=== PATIENT | male | born 1970 | race Caucasian/White ===

== ENCOUNTER 2022-02-08 09:31 | Observation (INO) ==
[2022-02-08] MEDS ORDERED: SODIUM CHLORIDE 1,000 ML IV STA (09:59)
[2022-02-08] MEDS ORDERED: THIAMINE 100 MG in SODIUM CHLORIDE 50 ML IV ONE ×2 (10:01→12:37)
[2022-02-08] MEDS ORDERED: THIAMINE ONE (10:07)
[2022-02-08 10:13] LABS: BASOPHILS # (AUTO) 0.1 K/uL (0-0.2); BASOPHILS % (AUTO) 0.7 % (0.0-3.0); EOSINOPHILS # (AUTO) 0.2 K/ul (0.0-0.7); EOSINOPHILS % (AUTO) 1.6 % (0.0-7.0); HEMATOCRIT 44.5 % (42.0-52.0); HEMOGLOBIN 15.1 g/dl (14.0-18.0); IMMATURE GRANULOCYTE % (AUTO) 0.3 % (0.0-5.0); LYMPHOCYTES # (AUTO) 2.4 K/uL (0.60-3.4); LYMPHOCYTES % (AUTO) 18.9 (10.0-50.0); MEAN CORPUSCULAR HEMOGLOBIN 29.9 pg (27.0-31.0); MEAN CORPUSCULAR HGB CONC 33.9 (31.8-35.4); MEAN CORPUSCULAR VOLUME 88.1 fl (80.0-94.0); MONOCYTES # (AUTO) 1.2 K/uL (0.4-2.0); MONOCYTES % (AUTO) 9.4 (0-10); NEUTROPHILS # (AUTO) 8.9 K/ul (2.0-6.9); NEUTROPHILS % (AUTO) 69.1 % (42.2-75.2); PLATELET COUNT 156 10^3/uL (140-440); RDW COEFFICIENT OF VARIATION 12.8 % (11.6-14.8); RED BLOOD COUNT 5.05 10^6/ul (4.70-6.10); WHITE BLOOD COUNT 12.85 K/ul (4.2-10.2)
[2022-02-08 10:26] LABS: ALANINE AMINOTRANSFERASE 20.7 U/L (0-50); ALBUMIN 4.83 g/dL (3.5-5.0); ALKALINE PHOSPHATASE 81.2 U/L (38-126); ASPARTATE AMINO TRANSFERASE 34.9 U/L (17-59); BILIRUBIN,TOTAL 0.51 mg/dL (0.2-1.3); BLOOD ALCOHOL 226.1 mg/dL (0.0-50.0); BLOOD UREA NITROGEN 17.8 mg/dL (9-20); CALCIUM 9.86 mg/dL (8.4-10.2); CARBON DIOXIDE 27.8 mmol/L (22-30.0); CHLORIDE 105.8 mmol/L (98-107); CREATININE 1.02 mg/dL (0.60-1.10); GLUCOSE 120.8 mg/dL (74-106); POTASSIUM 3.82 mmol/L (3.5-5.1); SODIUM 143.1 mmol/L (134.5-145); TOTAL PROTEIN 8.18 g/dL (6.3-8.2)
[2022-02-08] MEDS ORDERED: ATIVAN IVP ONE (10:30)
[2022-02-08] MEDS ORDERED: PROTONIX IV IVP ONE (10:30)
[2022-02-08] MEDS ORDERED: ZOFRAN 4 MG/2 ML IVP STA (10:30)
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
[2022-02-08 10:39] LABS: SALICYLATE < 1.00 mg/dL (0-20.0)
[2022-02-08 10:40] LABS: ACETAMINOPHEN < 10.0 ug/ml (10-30)
[2022-02-08 10:41] LABS: AMYLASE 105.7 U/L (30-110); LIPASE 134.6 U/L (23-300)
[2022-02-08 10:56] LABS: THYROID STIMULATING HORMONE 0.868 uIU/L (0.465-4.68)
[2022-02-08 11:01] LABS: BILIRUBIN,URINE Negative (NEGATIVE); CLARITY,URINE Clear (CLEAR); COLOR,URINE Yellow (YELLOW); GLUCOSE, URINE (UA) Negative (NEGATIVE); KETONES,URINE Negative (NEGATIVE); LEUKOCYTE ESTERASE ,URINE Negative (NEGATIVE); NITRITE,URINE Negative (NEGATIVE); PROTEIN,URINE Negative (NEGATIVE); URINE, BLOOD Negative (NEGATIVE); UROBILINOGEN,URINE 0.2 (0.2)
[2022-02-08 11:10] LABS: SARS COV-2 RNA RAPID NAAT NEGATIVE (NEGATIVE)
[2022-02-08 11:11] LABS: AMPHETAMINE SCREEN,URINE NEGATIVE (NEGATIVE); BARBITURATE SCREEN,URINE NEGATIVE (NEGATIVE); BENZODIAZEPINES SCREEN,URINE NEGATIVE (NEGATIVE); CANNABINOID SCREEN,URINE POSITIVE (NEGATIVE); COCAIN SCREEN,URINE NEGATIVE (NEGATIVE); METHADONE URINE SCREEN NEGATIVE (NEGATIVE); METHAMPHETAMINES SCREEN,URINE NEGATIVE (NEGATIVE); OPIATE SCREEN,URINE NEGATIVE (NEGATIVE); OXYCODONE URINE SCREEN NEGATIVE (NEGATIVE); PHENCYCLIDINE SCREEN,URINE NEGATIVE (NEGATIVE); PROPOXYPHENE URINE SCREEN NEGATIVE (NEGATIVE); TRICYCLIC ANTIDEPRESSANTS URIN NEGATIVE (NEGATIVE)
[2022-02-08] MEDS ORDERED: ATIVAN IVP PRN ×2 (12:37)
[2022-02-08] MEDS ORDERED: ZOFRAN 4 MG/2 ML IVP PRN (12:37)
[2022-02-08] MEDS ORDERED: SODIUM CHLORIDE 1,000 ML IV ONE (12:37)
[2022-02-08] MEDS ORDERED: VENTOLIN HFA (PER PUFF-WITH SPACER) IH PRN (12:45)
[2022-02-08] MEDS ORDERED: MOBIC PO PRN (12:45)
[2022-02-08 13:25] VITALS: BMI 26.7
[2022-02-08] MEDS ORDERED: SODIUM CHLORIDE 1,000 ML IV SCH (14:00)
[2022-02-08] MEDS ORDERED: FOLIC ACID PO SCH (14:00)
[2022-02-08] MEDS ORDERED: MULTIVITAMIN TABLET PO SCH (14:00)
[2022-02-08] MEDS: ATIVAN IVP PRN (14:23)
[2022-02-08] MEDS: INFUVITE ADULT 10 ML in SODIUM CHLORIDE 1,000 ML IV SCH (14:49)
[2022-02-08] MEDS: FOLIC ACID 1 MG in SODIUM CHLORIDE 50 ML IV SCH (14:50)
[2022-02-08] MEDS: ADVAIR 250-50 DISKUS IH SCH ×2 (17:34→20:48)
[2022-02-08] MEDS: ZESTRIL PO SCH ×2 (17:34→20:43)
[2022-02-08] MEDS: ZOLOFT PO SCH (17:34)
[2022-02-08] MEDS: ATIVAN PO PRN ×2 (18:08→20:59)
[2022-02-08] MEDS: SEROQUEL PO SCH (20:43)
[2022-02-08] MEDS: NICODERM 21 MG TD SCH (20:43)
[2022-02-08] MEDS: LIPITOR PO SCH (20:43)
[2022-02-09] MEDS ORDERED: INFUVITE ADULT IV ONE ×2 (02:50→21:33)
[2022-02-09] MEDS: INFUVITE ADULT 10 ML in SODIUM CHLORIDE 1,000 ML IV SCH ×2 (03:03→21:42)
[2022-02-09 05:32] LABS: BASOPHILS # (AUTO) 0.1 K/uL (0-0.2); BASOPHILS % (AUTO) 0.8 % (0.0-3.0); EOSINOPHILS # (AUTO) 0.4 K/ul (0.0-0.7); EOSINOPHILS % (AUTO) 4.5 % (0.0-7.0); HEMATOCRIT 42.2 % (42.0-52.0); IMMATURE GRANULOCYTE % (AUTO) 0.2 % (0.0-5.0); LYMPHOCYTES # (AUTO) 2.3 K/uL (0.60-3.4); MEAN CORPUSCULAR HGB CONC 33.2 (31.8-35.4); MEAN CORPUSCULAR VOLUME 90.4 fl (80.0-94.0); MONOCYTES % (AUTO) 11.1 (0-10); NEUTROPHILS # (AUTO) 5.1 K/ul (2.0-6.9); NEUTROPHILS % (AUTO) 57.4 % (42.2-75.2); PLATELET COUNT 132 10^3/uL (140-440); RED BLOOD COUNT 4.67 10^6/ul (4.70-6.10); WHITE BLOOD COUNT 8.85 K/ul (4.2-10.2)
[2022-02-09 05:44] LABS: BLOOD UREA NITROGEN 14.3 mg/dL (9-20); CALCIUM 9.5 mg/dL (8.4-10.2); CARBON DIOXIDE 28.9 mmol/L (22-30.0); CHLORIDE 108.1 mmol/L (98-107); POTASSIUM 4.08 mmol/L (3.5-5.1); SODIUM 140.6 mmol/L (134.5-145)
[2022-02-09] MEDS: ATIVAN IVP PRN (08:07)
[2022-02-09] MEDS ORDERED: THIAMINE PO SCH (09:00)
[2022-02-09] MEDS ORDERED: THIAMINE 100 MG in SODIUM CHLORIDE 50 ML IV SCH (09:00)
[2022-02-09] MEDS: PROTONIX IV IVP SCH (09:26)
[2022-02-09] MEDS: NICODERM 21 MG TD SCH (09:27)
[2022-02-09] MEDS: ZESTRIL PO SCH ×2 (09:27→20:29)
[2022-02-09] MEDS: ZOLOFT PO SCH (09:27)
[2022-02-09] MEDS: ADVAIR 250-50 DISKUS IH SCH ×2 (09:28→20:30)
[2022-02-09] MEDS: FOLIC ACID 1 MG in SODIUM CHLORIDE 50 ML IV SCH (10:15)
--- NOTE | 2022-02-09 10:42 | PCM.PROG ---
Date Seen by Provider: 02/09/22 Time Seen by Provider: 09:30 Subjective: Patient with some anxiety. Tolerating diet. Objective: Vitals: T=97.3 F, P=110, R=18, ZE=798/95, SPO2=96 Patient alert and in NAD. HEENT: [] Neck: [] Lungs: [] Chest with a few rhonchi. Breath sounds decreased bilaterally though equal. CVS: [] RRR Abdomen: [] Soft, nontender. Extremities: [] Neurological: [] Skin: [] Lab/Tests/Diagnostic Imaging: [] (1) Alcohol dependence syndrome: Status: Acute Code(s): F10.20 - Alcohol dependence, uncomplicated SNOMED Code(s): 93559685 (2) Alcohol withdrawal syndrome: Status: Acute Code(s): F10.939 - Alcohol use, unspecified with withdrawal, unspecified SNOMED Code(s): 536847123 Plan: Continue protocol for acute alcohol withdrawal. Discussion held with patient regarding alcohol cessation. He is receptive to this suggestion and case management will see him for consideration of placement in an inpatient alcohol treatment facility after discharge.
--- NOTE | 2022-02-09 11:29 | DI ---
EXAM: Chest two view, frontal and lateral views. HISTORY: Cough, chest congestion. COMPARISON: None. FINDINGS: The heart size is normal. There is no pulmonary vascular congestion. The lungs are clear . No pleural effusion or pneumothorax is seen. No acute osseous abnormality identified. Old right rib fractures. IMPRESSION: No acute cardiopulmonary process.
[2022-02-09] MEDS: ATIVAN PO PRN ×2 (18:28→21:38)
[2022-02-09] MEDS: LIPITOR PO SCH (20:28)
[2022-02-09] MEDS: SEROQUEL PO SCH (20:29)
[2022-02-10 05:54] LABS: BASOPHILS # (AUTO) 0.1 K/uL (0-0.2); BASOPHILS % (AUTO) 0.5 % (0.0-3.0); EOSINOPHILS # (AUTO) 0.5 K/ul (0.0-0.7); EOSINOPHILS % (AUTO) 5.2 % (0.0-7.0); HEMATOCRIT 39.7 % (42.0-52.0); HEMOGLOBIN 13.5 g/dl (14.0-18.0); IMMATURE GRANULOCYTE % (AUTO) 0.2 % (0.0-5.0); LYMPHOCYTES # (AUTO) 1.6 K/uL (0.60-3.4); LYMPHOCYTES % (AUTO) 17.6 (10.0-50.0); MEAN CORPUSCULAR HEMOGLOBIN 30.4 pg (27.0-31.0); MEAN CORPUSCULAR VOLUME 89.4 fl (80.0-94.0); MONOCYTES # (AUTO) 0.9 K/uL (0.4-2.0); MONOCYTES % (AUTO) 10.3 (0-10); NEUTROPHILS # (AUTO) 6.1 K/ul (2.0-6.9); NEUTROPHILS % (AUTO) 66.2 % (42.2-75.2); PLATELET COUNT 124 10^3/uL (140-440); RDW COEFFICIENT OF VARIATION 12.7 % (11.6-14.8); RED BLOOD COUNT 4.44 10^6/ul (4.70-6.10); WHITE BLOOD COUNT 9.17 K/ul (4.2-10.2)
[2022-02-10 06:08] LABS: BLOOD UREA NITROGEN 13.5 mg/dL (9-20); CALCIUM 8.69 mg/dL (8.4-10.2); CARBON DIOXIDE 24.3 mmol/L (22-30.0); CHLORIDE 108.2 mmol/L (98-107); CREATININE 0.82 mg/dL (0.60-1.10); GLUCOSE 97.3 mg/dL (74-106); POTASSIUM 3.89 mmol/L (3.5-5.1); SODIUM 140.5 mmol/L (134.5-145)
[2022-02-10] MEDS: NICODERM 21 MG TD SCH (09:26)
[2022-02-10] MEDS: PROTONIX IV IVP SCH (09:26)
[2022-02-10] MEDS: ZESTRIL PO SCH (09:35)
[2022-02-10] MEDS: ZOLOFT PO SCH (09:36)
[2022-02-10] MEDS: ADVAIR 250-50 DISKUS IH SCH (09:38)
[2022-02-10] MEDS: ATIVAN IVP PRN (09:50)
[2022-02-10 10:08] VITALS: BP 158/106; TEMP 97.1
--- NOTE | 2022-02-10 14:17 | PCM.DC ---
Final Diagnosis: Alcohol intoxication and Dependence Physical Exam Appearance: Well-appearing Pain Distress: None Eyes: Conjunctiva clear ENT: Nose normal Neck: Supple Respiratory: Airway patent and Breath sounds clear Cardiovascular: RRR, Pulses normal and No rub GI/: Soft and Nontender Musculoskeletal: Normal strength, ROM intact and No edema Skin: Warm and Dry Neurological: Motor intact, Alert and Oriented Psychiatric: Anxious (1) Alcohol dependence syndrome: Status: Acute Code(s): F10.20 - Alcohol dependence, uncomplicated SNOMED Code(s): 25494616 Qualifiers: Complication of substance-induced condition: uncomplicated Substance use status: with intoxication Qualified Code(s): F10.220 - Alcohol dependence with intoxication, uncomplicated (2) Alcohol withdrawal syndrome: Status: Acute Code(s): F10.939 - Alcohol use, unspecified with withdrawal, unspecified SNOMED Code(s): 828215669 Reason for Hospitalization: For Alcohol intoxication to prevent withdrawal Prognosis/Condition at Discharge: stable. Medications at Discharge: none Education Provided to Patient and Family: To avoid Alcohol Follow-ups: With PCP/ mental health counseor Discharge Disposition: AMA Hospital Course: Patient was given IV fluid, Thiamine, Multivitamin and Placed on CIWA protocol for alcohol Detox. He was offered some rehabilitation centers for rehab but patient left AMA this morning
== END 2022-02-10 11:30 | disposition left against medical advice (07) ==
LOC: ED 09:31 → MEDSURG A 09:31
PROVIDERS: ADMIT Internal Medicine Geriatric Medicine; ATTEND Internal Medicine Geriatric Medicine
DX: F10.229 Alcohol dependence with intoxication, unspecified; F32.A Depression, unspecified; F41.9 Anxiety disorder, unspecified; F10.20 Alcohol dependence, uncomplicated; F10.239 Alcohol dependence with withdrawal, unspecified; Z51.81 Encounter for therapeutic drug level monitoring; Z59.02 Unsheltered homelessness; Z91.14 Patient's other noncompliance with medication regimen; Z03.89 Encounter for observation for other suspected diseases and conditions ruled out; Z20.822 Contact with and (suspected) exposure to COVID-19; Z79.899 Other long term (current) drug therapy; Y90.7 Blood alcohol level of 200-239 mg/100 ml